=== PATIENT | female | born 1960 | race Caucasian/White ===

== ENCOUNTER → 2021-05-19 | Outpatient (CLI) | payer MEDICARE, OTHER ==
--- NOTE | 2021-05-22 06:22 | PE ---
EXAMINATION TYPE: PET CT fusion skull to thigh DATE OF EXAM: 05/19/2021 COMPARISON: Outside chest CT April 19, 2020 HISTORY: Abnormal CT, right-sided solitary pulmonary nodule TECHNIQUE: Following the intravenous administration of 6.39 mCi of F-18 FDG, whole body images are p erformed from the skull base to the midthigh. Images are reviewed on the computer in the coronal, ax ial, and sagittal planes. Reconstructed rotating images are created on independent workstation and r eviewed on the computer. A localization and attenuation correction CT is performed in conjunction w ith the PET scan. Blood glucose level equals 102 SCAN: Initial Scan FINDINGS: SKULL BASE AND NECK: No areas of abnormal hypermetabolic uptake CHEST, MEDIASTINUM, AND HILAR REGION: Background mild to moderate underlying emphysematous change gre atest in the upper lungs is redemonstrated. Prior visualized 2.6 x 2.5 centimeter right middle lobe n odule or nodular consolidation along the fissure is slightly smaller in size measuring 2.2 x 2.1 cm c urrent study axial image 87 with nondependent air, somewhat low density with mild hypermetabolic upta ke. Max SUV is less than 2.5. Medial to this there is persistent pleural or subpleural-based nodule o r nodular thickening measuring 1.8 x 1.3 cm similar to prior that is ametabolic favoring rounded atel ectasis or nodular scarring. A similar subpleural nodule or nodular consolidation measuring 2.3 x 0.9 cm axial image 99 is unchanged from prior in size noted ametabolic on current study. Some nodular ba silar scarring scarring or basilar nodularity axial image 117 and 118 is redemonstrated including dom inant 1.2 x 1.0 cm left basilar nodule which is noted ametabolic. No additional areas of abnormal hyp ermetabolic uptake. ABDOMEN AND PELVIS: Normal excretion. Patient has little intra-abdominal fat. Gas prominent rectum. N o adrenal masses. OSSEOUS STRUCTURES: No abnormal hypermetabolic uptake. OTHER CT: Nasal septum deviated to the right of midline. Moderate to severe calcified plaque bilatera l carotid bulb level. At least moderate coronary artery calcification. Moderate calcified plaque of distal abdominal aorta extends into iliac branch vessels. Straightening of spine with moderate multilevel disc space narrowi ng greatest at L2-L3 and L5-S1 levels. IMPRESSION: Majority of scattered nodules are ametabolic; single dominant right mid nodule or nodular density slightly smaller in size with nondependent air suggesting fluid or cavitary component. Favor inflammatory or infectious etiology. Correlate clinically. Consider contrast-enhanced CT follow-up i n 1-3 months time to reassess.
== END | disposition home or self-care (01) ==
LOC: RADPETMAIN 13:47
PROVIDERS: ATTEND Internal Medicine
DX: R91.8 Other nonspecific abnormal finding of lung field (principal)
CPT/HCPCS: 78815; A9552

== ENCOUNTER → 2021-08-21 | Outpatient (CLI) | payer MEDICARE ==
--- NOTE | 2021-08-21 14:47 | CT ---
EXAMINATION TYPE: CT chest w con DATE OF EXAM: 08/21/2021 COMPARISON: PET/CT 1321 HISTORY: lung mass CT DLP: 104 mGycm, Automated exposure control for dose reduction was used. CONTRAST: Performed injected with 100 mL of Isovue 300. TECHNIQUE: Axial images were obtained at 5 mm thick sections. Reconstructed images are reviewed on [employer] computer in the coronal plane. FINDINGS: Portion of the thyroid visualized is normal. There is a vague 0.3 cm nodule within the apex of the right lung field present previously. There is a pleural-based density measuring 0.9 cm cyst along the posterior medial right upper lung fi eld. Series 4 image 17. There is a density measuring 1.2 cm extending into the lung field from the pleural margin. Series 4 i mage 11 present previously. A 1.2 cm pleural-based density with a depth of 0.8 cm is again evident within the posterior medial ri ght mid lung. Series 4 image 25. A medial right pleural-based density measuring 2.4 x 1.1 cm is present, series 4 image 35 may be mini cory enlarged from comparison. Small focus of pneumonitis in the posterior right lung is again evident. Series 4 image 40. There is a cavitary lesion with spiculated margins in the posterior lateral right mid lung measuring 2.1 cm. This is stable in size. Spiculation appears more exaggerated on the current exam. No enlarged mediastinal or hilar lymph nodes are evident. The ascending aorta diameter at the level of the main pulmonary artery is 3.0 cm. The main pulmona ry artery diameter at the bifurcation is 2.[address] sections are obtained through the upper abdomen. Abdomen is essentially unremarkable. IMPRESSIONS: 1. Stable sized cavitary lesion within the right lung may have increased spiculation on these images. 2. Multiple pleural-based lesions within the right lung present previously. The largest these may hav e been minimal in size over the interval.
== END | disposition home or self-care (01) ==
LOC: RADCTMAIN 13:57
PROVIDERS: ATTEND Internal Medicine
DX: R91.1 Solitary pulmonary nodule (principal)
CPT/HCPCS: 71260; Q9967

== ENCOUNTER → 2021-12-18 | Outpatient (CLI) | payer MEDICARE, OTHER ==
--- NOTE | 2021-12-18 10:18 | CT ---
EXAMINATION TYPE: CT chest w con DATE OF EXAM: 12/18/2021 COMPARISON: 08/21/2021 and 05/19/2021 HISTORY: 61-year-old female are 91.1, Right lower lobe nodule TECHNIQUE: Contiguous axial scanning of the chest after the administration of 95 mL of Isovue 300. C oronal/sagittal reconstructions performed. CT DLP: 112.9mGycm. Automatic exposure control utilized for a dose reduction. FINDINGS: Heart normal size without pericardial effusion. LAD and RCA coronary artery calcifications are presen t. Mild atherosclerotic arch calcifications with conventional arch vessel branching anatomy. Mildly enlarged 1.5 cm right hilar lymph node is unchanged likely reactive/post inflammatory. Otherwi se, no thoracic lymphadenopathy by CT size criteria. Moderate emphysematous change. Biapical pleural-parenchymal scarring. Scattered bilateral pulmonary n odules, for example, measuring 2.4 x 1.1 cm at the medial right base, 1.0 cm posterior right upper lo be, 9 mm and 1.2 x 0.7 cm posterior right midlung are all redemonstrated. Additional scattered smalle r nodules are present bilaterally and also overlying the hemidiaphragm on both sides. Nodules are rel atively unchanged from 08/21/2021 but again, may have enlarged by 1 to 2 mm compared to 05/19/2021. The previous cavitary lesion right midlung currently measures 1.7 x 1.0 cm versus 2.0 x 1.9 cm, previ ously and now has a more scarlike appearance. Ongoing follow-up recommended. Visualized upper abdomen shows moderate atherosclerotic calcifications of the abdominal aorta. Bones: Moderate degenerative disc disease visualized upper lumbar spine. IMPRESSION: 1. COPD with moderate emphysema. CAD with LAD and RCA coronary artery calcifications. 2. Numerous scattered bilateral pulmonary nodules measuring up to 2.4 cm unchanged from 08/21/2021. A gain, we note that there may be slight increase in size by 1 to 2 mm compared to 05/19/2021. 3. The previous right midlung cavitary lesion is smaller at 1.7 x 1.0 cm (versus 2.0 x 1.9 cm, previo usly) and now has a more scarlike appearance. Finding suggest treated infectious etiology. Ongoing fo llow-up recommended to ensure continuing involution and also to reassess the numerous other nodules.
== END | disposition home or self-care (01) ==
LOC: RADCTMAIN 08:55
PROVIDERS: ATTEND Internal Medicine
DX: R91.1 Solitary pulmonary nodule (principal); J43.9 Emphysema, unspecified; I25.10 Atherosclerotic heart disease of native coronary artery without angina pectoris
CPT/HCPCS: 71260; Q9967

== ENCOUNTER → 2022-04-17 | Outpatient (CLI) | payer MEDICARE, OTHER ==
--- NOTE | 2022-04-17 13:53 | CT ---
EXAMINATION TYPE: CT chest w con CT DLP: 111.5 mGycm, Automated exposure control for dose reduction was used. DATE OF EXAM: 04/17/2022 1:29 PM COMPARISON: CT chest 12/08/2021. CLINICAL INDICATION:Female, 61 years old with history of R91.1 Lung nodule, f/u nodules TECHNIQUE: Multiple axial images were obtained through the chest following the administration of 70 c c of Isovue 300. FINDINGS: LUNGS/ PLEURA: Scattered pulmonary nodules as seen on prior of which are stable from prior, examples include right upper lobe measuring similarly at 5 mm, right posterior lung is decreased in size and h as a flattened appearance measuring average 7 mm, more inferiorly pleural-based nodule measures simil roland at 12 x 7 mm, right midlung major fissure thickening is similar measuring on sagittal view 23 x 6 mm, right lower lobe medial fingerlike ovoid pleural-based nodule measures similarly at 24 x 11 mm, right lower lobe predominantly groundglass nodule measuring 10 mm and lastly within the left upper l obe pulmonary nodule is stable measuring 4 mm. No evidence of focal consolidation, pneumothorax or pleural effusion. There is centrilobular emphysem a changes most pronounced in the lung apices. AIRWAY: Patent and unremarkable.. HEART: Size within normal limits. Moderate atherosclerosis of the coronary arteries. MEDIASTINUM: No gross evidence of adenopathy. VASCULATURE: No aortic aneurysm. Scattered atherosclerosis of the arterial vasculature. MUSCULOSKELETAL: No acute osseous abnormalities. Multilevel disc degeneration changes are seen throug hout the spine. SOFT TISSUES/LYMPH NODES: Unremarkable. LOWER NECK: No significant findings. UPPER ABDOMEN: No significant findings. IMPRESSION: 1. Scattered pulmonary nodules which are stable from prior on 12/08/2021. Large cavitary lesion seen o n 08/21/2021 is now more solitary and located within the right major fissure. This lesion is stable t o prior imaging on 12/08/2021 Continued attention on follow-up imaging is recommended. 2. Moderate coronary artery atherosclerosis. 3. COPD changes.
== END | disposition home or self-care (01) ==
LOC: RADCTMAIN 12:51
PROVIDERS: ATTEND Internal Medicine
DX: R91.1 Solitary pulmonary nodule (principal)
CPT/HCPCS: 71260; Q9967

== ENCOUNTER → 2022-08-07 | Outpatient (CLI) | payer MEDICARE, OTHER ==
--- NOTE | 2022-08-08 06:29 | CT ---
EXAMINATION TYPE: CT chest w con DATE OF EXAM: 08/07/2022 COMPARISON: Most recent chest CT April 17, 2022 and older CTs and PET CTs HISTORY: Follow up for abnormal findings of lung field CT DLP: 118.8 mGycm. Automated Exposure Control for Dose Reduction was Utilized. TECHNIQUE: CT scan of the thorax is performed following with IV Contrast, patient injected with 70cc mL of Isovue 300. FINDINGS: LUNGS: Moderate underlying emphysematous changes are redemonstrated. Scattered areas of nodularity re demonstrated. For reference spiculated nodule or nodular scarring measuring 1.2 x 1.1 cm axial image 32 along the fissure is unchanged from most recent CT and diminished in size from older studies. Shantelle lar posterior medial elongated 2.0 x 0.9 cm nodule axial image 40 is unchanged from most recent CT. F ocal irregular linear scarring left lung base axial image 54 redemonstrated unchanged from prior stud ies. Stable 4 mm scarlike opacity in the lingula axial image 34. There is however slow growing 11 x 10 mm anterior right mid lung nodule which is not clearly identifi ed on the 2020 studies that is suspicious. No pleural effusion or pneumothorax seen bilaterally. MEDIASTINUM: There are no greater than 1 cm hilar or mediastinal lymph nodes. No cardiomegaly or pe ricardial effusion is seen. Coronary artery calcification and/or stents are present. Correlate clini lolis. OTHER: No additional significant abnormality is seen. IMPRESSION: Moderate emphysematous change with predominantly stable scattered nodules and/or nodular scarring. There is however slow growing 11 mm anterior right midlung nodule which is new from [address] . Neoplasm cannot be excluded. Consider repeat PET/CT to further evaluate.
== END | disposition home or self-care (01) ==
LOC: RADCTMAIN 16:48
PROVIDERS: ATTEND Internal Medicine
DX: R91.8 Other nonspecific abnormal finding of lung field (principal)
CPT/HCPCS: 71260; Q9967

== ENCOUNTER → 2023-10-28 | Outpatient (CLI) | payer MEDICARE, OTHER ==
--- NOTE | 2023-10-28 12:17 | CT ---
EXAMINATION TYPE: CT chest w con DATE OF EXAM: 10/28/2023 COMPARISON: 12/13/2022 HISTORY: f/u nodules CT DLP: 111.9 mGycm, Automated exposure control for dose reduction was used. CONTRAST: Performed injected with 100 mL of Isovue 300. TECHNIQUE: Axial images were obtained at 5 mm thick sections. Reconstructed images are reviewed on t computer in the coronal plane. FINDINGS: Portion of the thyroid visualized is normal. There is a 0.5 cm nodule peripheral right upper lung field. Series 4 image 10. This was present previ ously. There is a 1.2 cm pleural-based density anterior right midlung. Series 4 image 29. This previously me asured 0.9 x 1.0 cm. A 1.3 cm pleural-based density is present series 4 image 29. This may have been present previously. There is a density with indistinct margins along the major fissure on the right, series 4 image 30. T his appears enlarged from comparison. Current measurement is 13 x 12 mm. Previous measurements 12 x 1 0 mm There is a stable appearing 2.3 x 0.9 cm pleural-based density posterior medial right lung. Series 4 image 39. Mild emphysematous changes are present bilaterally. No enlarged mediastinal or hilar adenopathy is evident. The ascending aorta diameter at the level o f the main pulmonary artery is 3.2 cm. The main pulmonary artery diameter at the bifurcation is 2.[address] sections are obtained through the upper abdomen. Abdomen is essentially unremarkable. IMPRESSION: 1. Multiple peripheral right lung nodules. These are stable to minimally increased in size by 1 to 2 mm.
== END | disposition home or self-care (01) ==
LOC: RADCTMAIN 11:30
PROVIDERS: ATTEND Internal Medicine
DX: R91.8 Other nonspecific abnormal finding of lung field (principal)
CPT/HCPCS: 71260; Q9967

== ENCOUNTER → 2024-02-18 | Outpatient (CLI) | payer MEDICARE, OTHER ==
--- NOTE | 2024-02-18 14:30 | CT ---
EXAMINATION TYPE: CT chest w con DATE OF EXAM: 02/18/2024 COMPARISON: 10/28/2023 HISTORY: f.u lung nodule CT DLP: 121.0 mGycm Automated exposure control for dose reduction was used. CONTRAST: CT scan of the chest is performed with IV Contrast, patient injected with 80ml mL of Isovue 300. FINDINGS: LUNGS: 5.5 mm right upper lobe pulmonary nodule medially unchanged. Pleural-based nodule right upper lobe laterally image 20 measuring 1.5 cm versus 1.1 cm previously. Pleural-based nodular density righ t upper lobe anteriorly image 33 measures 1.1 cm versus 1.2 cm previously. Elongated major fissure no dular density measures 1.7 x 0.7 cm versus 1.3 x 1.2 cm measured previously. Groundglass irregular de nsity right lower lobe measures 1.4 cm versus 1.1 centimeters previously. Scattered emphysematous hoa nges seen no new nodules identified. MEDIASTINUM: There are no greater than 1 cm hilar or mediastinal lymph nodes. No pericardial effusi on is seen. Thoracic aorta is of normal caliber. The heart is not enlarged. UPPER ABDOMEN: No significant abnormality appreciated. OTHER: No additional significant abnormality is seen. IMPRESSION: 1. Multiple pulmonary nodules as described which have increased in size. Consider PET/CT correlation to exclude malignancy. 2. Mild emphysematous changes.
== END | disposition home or self-care (01) ==
LOC: RADCTMAIN 13:45
PROVIDERS: ATTEND Internal Medicine
DX: J43.9 Emphysema, unspecified (principal); R91.8 Other nonspecific abnormal finding of lung field
CPT/HCPCS: 71260; Q9967

== ENCOUNTER → 2024-03-07 | Outpatient (CLI) | payer MEDICARE, OTHER ==
--- NOTE | 2024-03-09 12:41 | PE ---
EXAMINATION TYPE: PET CT fusion skull to thigh DATE OF EXAM: 03/07/2024 COMPARISON: CT chest 02/18/2024 Prior PET/CT: None HISTORY: Solitary pulmonary nodule TECHNIQUE: Following the intravenous administration of 12.16 mCi of F-18 FDG, whole body images are performed from the skull base to the midthigh. Images are reviewed on the computer in the coronal, a xial, and sagittal planes. Reconstructed rotating images are created on independent workstation and reviewed on the computer. A localization and attenuation correction CT is performed in conjunction with the PET scan. DLP: 109.47 mGycm SCAN: Initial Blood glucose: 109 mg/dL Average Mediastinum SUV: 1.57 Average Liver SUV: 2.0 to FINDINGS: NECK: No abnormal uptake THORAX: There is some mild increased uptake along the right pleural margin posterior lateral right up per lung field. Image 42, SUV 1.96 There is a punctate nodular density within the left medial apex with mild increased uptake, image 75, SUV 3.0. There is intermediate uptake within a pleural-based nodular density posterior medial right lung. Imag e 89, SUV 0.99 There is intermediate uptake within a nodule within the posterior lateral right midlung, image 90, se trace 0.88 There is mild uptake within an anterior right midlung pleural-based nodularity, image 95, SUV 1.97. Nodular density in the posterior medial right apex, image 67 measures 0.91 SUV. There is a mild uptake throughout the esophagus. Correlate for esophagitis. ABDOMEN: No abnormal uptake PELVIS: No abnormal uptake OSSEOUS STRUCTURES: No abnormal uptake LOCALIZATION CT: Coronary artery calcification is present. COMPARISON: Nodularity current CT appears comparable to the prior exam aerated IMPRESSION: 1. Mild increased uptake within a nodule superior medial left of the aortic arch 3.0 SUV. 2. Remaining nodularities within the right lung and a more intermediate uptake which is nonspecific a nd could be related to inflammatory change or low-grade neoplasm.
== END | disposition home or self-care (01) ==
LOC: RADPETMAIN 07:29
PROVIDERS: ATTEND Internal Medicine
DX: J98.4 Other disorders of lung (principal); R91.8 Other nonspecific abnormal finding of lung field; R91.1 Solitary pulmonary nodule
CPT/HCPCS: 78815; A9552

== ENCOUNTER → 2024-06-25 | Outpatient (CLI) | payer MEDICARE ==
--- NOTE | 2024-07-06 12:57 | MM ---
Reason for Exam: Screening (asymptomatic). Last mammogram was performed 1 year(s) and 1 month(s) ago. Patient History: Menarche at age 13. First Full-Term at age 23. Postmenopausal. Risk Values: Jessica 5 year model risk: 1.4%. NCI Lifetime model risk: 6.0%. Prior Study Comparison: 05/08/2022 Bilateral Screening Mammogram, [facility]. 05/16/2023 Bilateral Screening Mammogram, [facility]. Tissue Density: The breasts are extremely dense, which lowers the sensitivity of mammography. Findings: Analyzed By CAD. There is no suspicious group of microcalcifications or new suspicious mass in either breast. Overall Assessment: Benign, BI-RAD 2 Management: Screening Mammogram of both breasts in 1 year. . Patient should continue monthly self-breast exams. A clinical breast exam by your physician is recommended on an annual basis. This exam should not preclude additional follow-up of suspicious palpable abnormalities. Note on Jessica scores and lifetime risk: 1. A Jessica score greater than 3% is considered moderate risk. If this is the case, consider specialist referral to assess eligibility for a risk reducing agent. 2. If overall lifetime risk for the development of breast cancer is 20% or higher, the patient may qualify for future screening with alternating mammogram and breast MRI. [facility], , 07/06/2024 12:54 PM. Electronically signed and approved by: Papo Bocanegra M.D. Radiologis
== END | disposition home or self-care (01) ==
LOC: RADMAMWWP 14:46
PROVIDERS: ATTEND Family Medicine
DX: Z12.31 Encounter for screening mammogram for malignant neoplasm of breast
CPT/HCPCS: 77067

== ENCOUNTER → 2024-11-10 | Outpatient (CLI) | payer MEDICARE ==
--- NOTE | 2024-11-10 13:01 | CT ---
EXAMINATION TYPE: CT chest w con DATE OF EXAM: 11/10/2024 12:34 PM COMPARISON: 03/07/2024 02/18/2024 CLINICAL INDICATION: Female, 64 years old with history of R91.8 OTHER NONSPECIFIC ABNORMAL FINDING OF LUNG F, f/u nodule TECHNIQUE: Multiple axial images were obtained through the chest. Sagittal and coronal reformats were created for review. MIP was performed on a separate workstation. Contrast used:80ml mL of Isovue 300 with IV Contrast (None if empty) Oral contrast used: (None if empty) CT DLP: 110.7 mGycm, Automated exposure control for dose reduction was used. FINDINGS: LUNGS/ PLEURA: Stable-appearing scattered nodules throughout the lung which had mild uptake on prior exam. Examples include right upper lung anterior lung pleura measuring 11 mm image 32, right lateral upper lung measuring 16 mm image 18. Left superior 6 mm nodule near the aortic arch image 18, left up per lung lateral 5 mm series 3 image 35 new or enlarging pulmonary nodules definitively visualized. C entrilobular and paraseptal emphysema changes noted. No focal consolidation, pneumothorax or pleural effusion. AIRWAY: Patent and unremarkable. HEART: Size within normal limits MEDIASTINUM: No gross evidence of adenopathy. VASCULATURE: Atherosclerotic calcifications are present throughout the aorta and its branches. MUSCULOSKELETAL: No acute osseous abnormalities SOFT TISSUES/LYMPH NODES: Unremarkable. LOWER NECK: No significant findings. UPPER ABDOMEN: No significant findings. IMPRESSION: 1. Stable pulmonary nodules no new or enlarging pulmonary nodules. 2. [id number] emphysema changes. 3. No evidence for acute abdominal process. [facility], , 11/10/2024 12:59 PM
== END | disposition home or self-care (01) ==
LOC: RADCTMAIN 11:58
PROVIDERS: ATTEND Internal Medicine
DX: J43.9 Emphysema, unspecified (principal); R91.8 Other nonspecific abnormal finding of lung field
CPT/HCPCS: 71260; Q9967